=== PATIENT | male | born 1960 ===

== ENCOUNTER 2022-05-30 12:51 | Outpatient (REF) | payer OTHER, SELFPAY ==
--- NOTE | 2022-06-13 10:38 | MHC.AU.MED ---
Medical Clearance for Hearing Instrumentation Date: 06/13/22 Patient Name: Maurisio Hernández Date of : 1960 Referring Provider: Tylor Monk MD We have seen your patient on 05/30/22 and have determined that they are a candidate for amplification (See accompanying report). Specifically, they would benefit from: Hearing aid use in both ears There is a statute that addresses Medical Evaluation Requirements prior to fitting a patient with a hearing aid. According to [place] statute 265 CMR:6.03(1), (a) General. Except as provided in 265 CMR 6.03(1)(b), a workers' compensation hearings officer shall not sell a hearing aid unless the prospective user has presented to the workers' compensation hearings officer a written statement signed by a licensed physician that states that the patient's hearing loss has been medically evaluated and the patient may be considered a candidate for a hearing aid. The medical evaluation must have taken place within the preceding six months. Please note: Due to the [place] Statute referenced above, we cannot accept a signature other than that of a licensed physician. [employer] and PA signatures cannot be accepted. I am in agreement with the above recommendation. There is no medical contraindication for hearing instrumentation. Physician Signature Date Physician Name (Printed)
--- NOTE | 2022-06-13 10:56 | MHC.AU.HA1 ---
Hearing Aid Evaluation Date of Visit: 05/30/22 Historical Information: Description of Hearing: Right- Normal to moderately-severe sensorineural hearing loss, Left- Normal to profound sensorineural hearing loss Summary: Patient was seen for audiological evaluation (see separate report for details). He has not previously worn amplification. Options were discussed. Hearing Aid Prescription: Based on the individual?s shared listening needs, communication environments, dexterity, desire for connectivity, and personal preferences, the following prescription for amplification has been made: Right ear: Make, Model, Color: Phonak Audeo L70-R, Sand Beige Battery Size: Rechargeable Documentation Consultant/Slim Tube: 1M Type of Earmold/Dome/CShell/SlimTip: SlimTip Acrylic Left ear: Make, Model, Color: Phonak Audeo L70-R, Sand Beige Battery Size: Rechargeable Documentation Consultant/Slim Tube: 1P Type of Earmold/Dome/CShell/SlimTip: SlimTip Acyrlic Action Taken/Action Needed: Earmold Impressions Taken Medical Clearance to be requested from PCP/ENT Hearing Instrument Fitting to be scheduled when materials arrive Primary Diagnosis: H90.3 Bilateral Sensorineural Hearing Loss Signature: Provider: Vera Frausto, [facility]
== END 2022-05-30 12:52 | disposition home or self-care (01) ==
LOC: HO.SH 12:51
PROVIDERS: Visit Provider Physician Assistant
DX: Z01.118 Encounter for examination of ears and hearing with other abnormal findings (principal); H90.3 Sensorineural hearing loss, bilateral
CPT/HCPCS: 92557; 92567; 92588; 92591; V5275

== ENCOUNTER 2022-07-24 14:29 | Outpatient (REF) | payer OTHER, SELFPAY ==
--- NOTE | 2022-07-24 15:02 | MHC.AU.NMH ---
Hearing Aid Delivery Receipt: Third Republican Payor [facility] type [facility] Other: Date of Fitting: End of Adjustment Period: 30 days from date of fitting Manager Call: Right Ear: Left Ear: Make, Model, Serial Number and Color: Phonak Audeo L70-R, Bri Flores S#[id number] Make, Model, Serial Number and Color: Phonak Audeo L70-R, Bri Flores S#[id number] Plating Tank Operator Apprentice/Slim Tube: 1M Plating Tank Operator Apprentice/Slim Tube: 1P Earmold/Dome/CShell/SlimTip: SlimTip Acrylic Earmold/Dome/CShell/SlimTip: SlimTip Acyrlic Type of Wax Guard: CeruShield Disk Type of Wax Guard: CeruShield Disk Battery Size: Rechargeable Battery Size: Rechargeable Senior Category Manager Repair Warranty: 10/01/2025 Senior Category Manager Repair Warranty: 10/03/2022 Senior Category Manager Loss and Damage Warranty: 10/01/2025 Senior Category Manager Loss and Damage Warranty: 10/03/2022 [facility] Service Agreement ends one year from date of fitting on? [facility] Service Agreement ends one year from date of fitting on Accessories/Assistive Technology: Phonak Pump Room Operator Ease S#[id number] Following the expiration of [facility]?s service agreement, charges for items and services listed above are billed at the usual and customary rate. *If coverage by third libertarian payor exists, medically necessary modifications, repairs, etc. will be billed to said third libertarian payor. If there is no third libertarian payor eligibility beyond the service agreement or used car lot attendant warranty periods, items will be billed per usual and customary rates and payment is expected at the time of service. Hearing aids that are lost or damaged beyond repair cannot be returned for credit, and the fence installer foreman is liable for the full purchase davis. My signature below acknowledges that I have read and understand this hearing aid contract and have received the goods and services out lined above. ?Date? Home Address: ? PATIENT STICKER ? This hearing aid will not restore normal hearing nor will it prevent further hearing loss. The sale of a hearing aid is restricted to those individuals who have obtained a medical evaluation from a licensed physician or market development trainer. A fully informed adult whose confucianism or personal beliefs preclude consultation with a physician may waive the requirement of a medical evaluation. The exercise of such a waiver is not in your best health interest and its use is strongly discouraged. It is also required that a person under the age of eighteen years obtain an evaluation by an tacker elastic band in addition to the medical evaluation before a hearing aid can be sold to such person. Rahat Nunez,Title XV,Chapter 93:74
== END 2022-07-24 14:30 | disposition home or self-care (01) ==
LOC: HO.HAP 14:29
PROVIDERS: Visit Provider Internal Medicine
DX: Z46.1 Encounter for fitting and adjustment of hearing aid (principal); H90.3 Sensorineural hearing loss, bilateral
CPT/HCPCS: V5011; V5020; V5160; V5261; V5264